=== PATIENT | male | born 1960 | race Caucasian/White ===

== ENCOUNTER 2018-01-29 11:43 | Inpatient (IN) | payer OTHER ==
[~2018-01-29] VITALS: Ht 165.1 cm; Wt 83.6 kg
[~2018-01-29 11:43] MED LIST: BUPIVACAINE HCL/PF 0.5% 30 ML VIAL ONE; LIDOCAINE HCL 2%/EPI 1:200,000/PF 20 ML VIAL ONE; RINGERS SOLUTION,LACTATED 1,000 ML IV ONE
[2018-01-29] MEDS ORDERED: SUCCINYLCHOLINE CHLORIDE 20 MG/ML 10 ML VIAL IVP ONE (12:00)
[2018-01-29] MEDS ORDERED: VECURONIUM BROMIDE 10 MG/VIAL IVP ONE (12:00)
[2018-01-29] MEDS ORDERED: MORPHINE SULFATE 4 MG/ML SYRINGE IVP ONE (12:00)
[2018-01-29] MEDS ORDERED: PROPOFOL 1% 20 ML VIAL IVP ONE (12:00)
[2018-01-29] MEDS ORDERED: RINGERS SOLUTION,LACTATED 1,000 ML IV ONE ×2 (12:00→15:59)
[2018-01-29] MEDS ORDERED: 0.9% SODIUM CHLORIDE 10 ML VIAL IVP ONE (12:00)
[2018-01-29] MEDS ORDERED: GLYCOPYRROLATE 0.2 MG/ML VIAL IM ONE (12:00)
[2018-01-29] MEDS ORDERED: FentaNYL CITRATE-PF 250 MCG/5 ML VIAL IVP ONE (12:00)
[2018-01-29] MEDS ORDERED: PHENYLEPHRINE HCL 10 MG/ML VIAL IVP ONE (12:00)
[2018-01-29] MEDS ORDERED: ESMOLOL HCL 10 MG/ML 10 ML VIAL IVP ONE (12:00)
[2018-01-29] MEDS ORDERED: MIDAZOLAM HCL 2 MG/2 ML VIAL IVP ONE (12:00)
[2018-01-29] MEDS ORDERED: METO-296 PO (12:16)
[2018-01-29] MEDS ORDERED: METF500T4 PO (12:16)
[2018-01-29] MEDS ORDERED: COMP10 PO (12:16)
[2018-01-29] MEDS ORDERED: TAMS0.4C32 PO (12:16)
[2018-01-29] MEDS ORDERED: ASPI-1182 PO (12:16)
[2018-01-29] MEDS ORDERED: DOCU-275 PO (12:16)
[2018-01-29] MEDS ORDERED: OMEP20 PO (12:16)
[2018-01-29 12:30] LABS: BASOPHILS % (AUTO) 0.2 % (0.0-2.0); HEMATOCRIT 47.2 % (41-53); HEMOGLOBIN 16.2 g/dL (13.5-17.5); LYMPHOCYTES # (AUTO) 1.6 K/uL (1.0-4.8); LYMPHOCYTES % (AUTO) 20.8 % (22.0-44.0); MEAN CORPUSCULAR HEMOGLOBIN 28.9 pg (26.0-34.0); MEAN CORPUSCULAR HGB CONC 34.3 G/dL (31.0-37.0); MEAN CORPUSCULAR VOLUME 84 fL (80-100); MONOCYTES # (AUTO) 0.5 K/uL (0.1-1.0); NEUTROPHILS # (AUTO) 5.4 K/uL (1.8-7.7); PLATELET COUNT (AUTO) 263 K/uL (150-450); RED BLOOD CELL COUNT(AUTO) 5.59 MIL/uL (4.50-5.90); RED CELL DISTRIBUTION WIDTH 15.2 % (11.5-14.5)
[2018-01-29 12:39] LABS: ANION GAP 8 mmol/L (8-16); CALCIUM, TOTAL 8.9 mg/dL (8.8-10.5); CARBON DIOXIDE 30 mmol/L (22-29); CHLORIDE 102 mmol/L (98-107); CREATININE 0.87 mg/dL (0.60-1.30); GLOMERULAR FILTR. RATE CALC > 60 mL/min (>60); GLUCOSE,RANDOM 127 mg/dL (70-110); POTASSIUM 3.8 mmol/L (3.5-5.1); SODIUM SERUM 140 mmol/L (136-145); UREA NITROGEN, BLOOD 12 mg/dL (7-18)
[2018-01-29 12:45] LABS: ALANINE AMINOTRANSFERASE 17 U/L (12-78); ALBUMIN 3.9 g/dL (3.4-5.0); ALKALINE PHOSPHATASE 93 U/L (46-116); ASPARTATE AMINOTRANSFERASE 16 U/L (15-37); BILIRUBIN,TOTAL 0.6 mg/dL (0.1-1.0); PROTHROMBIN TIME 10.1 SEC (9.4-11.6); TOTAL PROTEIN, SERUM 7.7 g/dL (6.4-8.2)
[2018-01-29] MEDS ORDERED: CefoTEtan DISOD 2 GM/DEXTROSE 50 ML IV ONE (13:30)
[2018-01-29] MEDS ORDERED: CLINDAMYCIN 600 MG/D5% WATER 50 ML IV ONE (13:30)
[2018-01-29] MEDS ORDERED: SODIUM CHLORIDE 0.9% 1,000 ML IV ONE ×2 (15:03→15:07)
[2018-01-29] MEDS ORDERED: ACETAMINOPHEN 1000 MG/ISO-OSM 100 ML IV ONE (16:38)
[2018-01-29] MEDS ORDERED: OxyCODONE HCL 5 MG IR TABLET PO PRN (16:45)
[2018-01-29] MEDS ORDERED: ZOLPIDEM TARTRATE 5 MG TABLET PO PRN (16:45)
[2018-01-29] MEDS ORDERED: CYCLOBENZAPRINE HCL 10 MG TABLET PO PRN (16:45)
[2018-01-29] MEDS ORDERED: HYDROmorphone 2 MG/ML SYRINGE IVP PRN (16:45)
[2018-01-29] MEDS ORDERED: MEPERIDINE-PF 25 MG/ML SYRINGE IVP PRN (16:45)
[2018-01-29] MEDS ORDERED: ONDANSETRON HCL 4 MG/2 ML VIAL IVP PRN ×2 (16:45→17:15)
[2018-01-29] MEDS ORDERED: FentaNYL CITRATE-PF 100 MCG/2 ML VIAL IVP PRN (16:45)
[2018-01-29] MEDS ORDERED: DEXTROSE 5% IV ONE (18:00)
[2018-01-29] MEDS ORDERED: CEFOTETAN DISODIUM IV ONE (18:00)
[2018-01-29] MEDS ORDERED: WATER IV ONE (18:00)
[2018-01-29 19:08] VITALS: BP 126/81
[2018-01-29] MEDS: MetFORMIN HCL 500 MG TABLET PO SCH (19:41)
[2018-01-29] MEDS ORDERED: OXYGEN THERAPY IH SCH (20:00)
[2018-01-29 20:04] VITALS: BP 121/79
[2018-01-29] MEDS: MORPHINE SULFATE 2 MG/ML SYRINGE IVP PRN (20:24)
[2018-01-29] MEDS: ACETAMINOPHEN 1000 MG/ISO-OSM 100 ML IV SCH (22:37)
[2018-01-29] MEDS: OXYGEN THERAPY IH SCH (22:40)
[2018-01-29 23:48] VITALS: BP 125/79
[2018-01-30] MEDS: ACETAMINOPHEN 1000 MG/ISO-OSM 100 ML IV SCH ×3 (04:34→16:14)
[2018-01-30] MEDS: MORPHINE SULFATE 2 MG/ML SYRINGE IVP PRN ×2 (05:13→20:01)
[2018-01-30 05:22] VITALS: BP 132/84
[2018-01-30 06:28] LABS: BASOPHILS % (AUTO) 0.2 % (0.0-2.0); EOSINOPHILS % (AUTO) 0.1 % (1.0-6.0); HEMATOCRIT 40.9 % (41-53); LYMPHOCYTES # (AUTO) 1.2 K/uL (1.0-4.8); LYMPHOCYTES % (AUTO) 13.9 % (22.0-44.0); MEAN CORPUSCULAR HEMOGLOBIN 28.9 pg (26.0-34.0); MEAN CORPUSCULAR HGB CONC 34.3 G/dL (31.0-37.0); MEAN CORPUSCULAR VOLUME 84 fL (80-100); MONOCYTES # (AUTO) 0.7 K/uL (0.1-1.0); MONOCYTES % (AUTO) 7.4 % (2.0-9.0); NEUTROPHILS # (AUTO) 6.9 K/uL (1.8-7.7); NEUTROPHILS % (AUTO) 78.4 % (40.0-70.0); PLATELET COUNT (AUTO) 203 K/uL (150-450); RED BLOOD CELL COUNT(AUTO) 4.85 MIL/uL (4.50-5.90)
[2018-01-30] MEDS ORDERED: PNEUMOCOCCAL VACCINE POLYVALENT 0.5 ML VIAL [PPSV23] IM ONE (06:30)
[2018-01-30 06:56] LABS: ANION GAP 5 mmol/L (8-16); CALCIUM, TOTAL 7.7 mg/dL (8.8-10.5); CARBON DIOXIDE 29 mmol/L (22-29); CHLORIDE 105 mmol/L (98-107); CREATININE 1.01 mg/dL (0.60-1.30); GLOMERULAR FILTR. RATE CALC > 60 mL/min (>60); GLUCOSE,RANDOM 146 mg/dL (70-110); POTASSIUM 3.8 mmol/L (3.5-5.1); SODIUM SERUM 139 mmol/L (136-145); UREA NITROGEN, BLOOD 12 mg/dL (7-18)
[2018-01-30 08:03] VITALS: BP 132/86
[2018-01-30] MEDS: MetFORMIN HCL 500 MG TABLET PO SCH ×2 (08:20→17:52)
[2018-01-30] MEDS: HEPARIN SODIUM,PORCINE 5,000 UNITS/ML VIAL SQ SCH ×2 (08:20→16:15)
[2018-01-30] MEDS: TAMSULOSIN HCL 0.4 MG CAPSULE PO SCH (08:20)
[2018-01-30 12:12] VITALS: BP 126/77
[2018-01-30 17:18] VITALS: BP 142/85
[2018-01-30] MEDS: OXYGEN THERAPY IH SCH (19:58)
[2018-01-30 20:11] VITALS: BP 132/80
[2018-01-30 23:57] VITALS: BP 136/86
[2018-01-31] MEDS: HEPARIN SODIUM,PORCINE 5,000 UNITS/ML VIAL SQ SCH ×4 (00:01→23:30)
[2018-01-31] MEDS: MORPHINE SULFATE 2 MG/ML SYRINGE IVP PRN ×2 (00:05→05:40)
[2018-01-31] MEDS: OxyCODONE HCL/ACETAMINOPHEN 10-325 MG TABLET PO PRN ×2 (04:04→09:01)
[2018-01-31 05:49] VITALS: BP 145/88
[2018-01-31 06:19] LABS: BASOPHILS % (AUTO) 0.2 % (0.0-2.0); EOSINOPHILS % (AUTO) 0 % (1.0-6.0); HEMATOCRIT 41.1 % (41-53); HEMOGLOBIN 13.8 g/dL (13.5-17.5); LYMPHOCYTES # (AUTO) 0.6 K/uL (1.0-4.8); LYMPHOCYTES % (AUTO) 7.3 % (22.0-44.0); MEAN CORPUSCULAR HEMOGLOBIN 28.4 pg (26.0-34.0); MEAN CORPUSCULAR HGB CONC 33.7 G/dL (31.0-37.0); MEAN CORPUSCULAR VOLUME 84 fL (80-100); MONOCYTES # (AUTO) 0.5 K/uL (0.1-1.0); MONOCYTES % (AUTO) 5.8 % (2.0-9.0); NEUTROPHILS # (AUTO) 7.3 K/uL (1.8-7.7); PLATELET COUNT (AUTO) 178 K/uL (150-450); RED BLOOD CELL COUNT(AUTO) 4.87 MIL/uL (4.50-5.90); RED CELL DISTRIBUTION WIDTH 15.2 % (11.5-14.5)
[2018-01-31 06:48] LABS: NEUTROPHILS % (AUTO) 86.7 % (40.0-70.0)
[2018-01-31 07:58] VITALS: BP 143/86
[2018-01-31] MEDS: MetFORMIN HCL 500 MG TABLET PO SCH ×2 (08:56→16:52)
[2018-01-31] MEDS: TAMSULOSIN HCL 0.4 MG CAPSULE PO SCH (08:57)
[2018-01-31 11:34] VITALS: BP 135/90
[2018-01-31] MEDS: DEXTROSE 5% IV SCH (13:19)
[2018-01-31] MEDS: WATER IV SCH (13:19)
[2018-01-31] MEDS: CEFTRIAXONE SODIUM IV SCH (13:19)
[2018-01-31 16:00] VITALS: BP 135/86
[2018-01-31 19:42] VITALS: BP 134/90
[2018-01-31 23:26] LABS: APPEARANCE,URINE CLOUDY (CLEAR); BILIRUBIN,URINE NEGATIVE (NEGATIVE); GLUCOSE, URINE (UA) 500 mg/dL (NEGATIVE); KETONES,URINE 40 mg/dL (NEGATIVE); LEUKOCYTE ESTERASE ,URINE NEGATIVE (NEGATIVE); NITRATE,URINE NEGATIVE (NEGATIVE); OCCULT BLOOD,URINE TRACE (NEGATIVE); PROTEIN,URINE POS 1+ (NEGATIVE); UROBILINOGEN,URINE 0.2 mg/dL (<=1.0)
[2018-01-31 23:35] VITALS: BP 136/93
[2018-01-31 23:46] LABS: RBC,URINE 0-2 /HPF (0-2)
[2018-01-31 23:50] LABS: BACTERIA,URINE Moderate /HPF (None Seen)
[2018-01-31 23:55] LABS: FINE GRANULAR CASTS,URINE 0-2 /LPF (None Seen); MUCUS,URINE Many LPF (None Seen); SQUAMOUS EPITHELIAL CELL,UR Few /LPF (None Seen)
[2018-02-01 05:10] VITALS: BP 139/85
[2018-02-01 06:54] LABS: BASOPHILS % (AUTO) 0.2 % (0.0-2.0); EOSINOPHILS % (AUTO) 0.4 % (1.0-6.0); HEMATOCRIT 37.9 % (41-53); HEMOGLOBIN 13.1 g/dL (13.5-17.5); LYMPHOCYTES # (AUTO) 0.9 K/uL (1.0-4.8); LYMPHOCYTES % (AUTO) 12.4 % (22.0-44.0); MEAN CORPUSCULAR HEMOGLOBIN 28.9 pg (26.0-34.0); MEAN CORPUSCULAR HGB CONC 34.7 G/dL (31.0-37.0); MEAN CORPUSCULAR VOLUME 83 fL (80-100); MONOCYTES # (AUTO) 0.5 K/uL (0.1-1.0); MONOCYTES % (AUTO) 6.6 % (2.0-9.0); NEUTROPHILS # (AUTO) 5.6 K/uL (1.8-7.7); NEUTROPHILS % (AUTO) 80.4 % (40.0-70.0); PLATELET COUNT (AUTO) 185 K/uL (150-450); RED BLOOD CELL COUNT(AUTO) 4.54 MIL/uL (4.50-5.90); RED CELL DISTRIBUTION WIDTH 15.1 % (11.5-14.5)
[2018-02-01] MEDS: MetFORMIN HCL 500 MG TABLET PO SCH (08:08)
[2018-02-01] MEDS: TAMSULOSIN HCL 0.4 MG CAPSULE PO SCH (08:08)
[2018-02-01] MEDS: HEPARIN SODIUM,PORCINE 5,000 UNITS/ML VIAL SQ SCH (08:08)
[2018-02-01 11:00] VITALS: BP 144/78
[2018-02-01] MEDS ORDERED: TRAM50TA2 PO (12:03)
[2018-02-01] MEDS ORDERED: CYCL10 PO (12:03)
[2018-02-01] MEDS ORDERED: CIPR500S4 PO (12:03)
[2018-02-01] MEDS: DEXTROSE 5% IV SCH (12:10)
[2018-02-01] MEDS: WATER IV SCH (12:10)
[2018-02-01] MEDS: CEFTRIAXONE SODIUM IV SCH (12:10)
[2018-02-01] MEDS ORDERED: IBUP-2071 PO (16:20)
[2018-02-01] MEDS ORDERED: HYDR-4061 PO (16:21)
[2018-02-01 16:24] VITALS: BP 140/74
== END 2018-02-01 17:35 | disposition home or self-care (01) | DRG 220 ==
LOC: SURGERY 11:43 → 4E 15:05 → 6N 02-01 11:22
PROVIDERS: ADMIT Surgery; ATTEND Surgery
PROC: 0WUF0JZ Supplement Abdominal Wall with Synthetic Substitute, Open Approach (ICD-10-PCS; 2018-01-29)
PROC: 0DV40ZZ Restriction of Esophagogastric Junction, Open Approach (ICD-10-PCS; 2018-01-29)
PROC: 0DH60UZ Insertion of Feeding Device into Stomach, Open Approach (ICD-10-PCS; 2018-01-29)
PROC: 0BUT0JZ Supplement Diaphragm with Synthetic Substitute, Open Approach (ICD-10-PCS; principal; 2018-01-29 13:46)
DX: K44.0 Diaphragmatic hernia with obstruction, without gangrene (principal); E11.9 Type 2 diabetes mellitus without complications; K43.2 Incisional hernia without obstruction or gangrene; K59.09 Other constipation; N40.0 Benign prostatic hyperplasia without lower urinary tract symptoms; Z79.84 Long term (current) use of oral hypoglycemic drugs; Z79.82 Long term (current) use of aspirin; Z79.899 Other long term (current) drug therapy
CPT/HCPCS: 71046; 86850; 86900; 86901; 87040; 87081; 87086; 88300; 93005; 94760; 94761; G0238; J0131; J0330; J0696; J1644; J2250; J2270; J2370; J2704; J3010; J3490; J7030; J7060; J7120